=== PATIENT | male | born 1975 | race Caucasian/White ===

== ENCOUNTER 2023-02-09 21:45 | Emergency (ER) | payer SELFPAY ==
[~2023-02-09] VITALS: Ht 172.7 cm; Wt 70.3 kg
[~2023-02-09 21:45] MED LIST: QUET100T PO
--- NOTE | 2023-02-09 21:45 | NUR ---
[facility], PT TO [facility] C
[2023-02-09 21:55] VITALS: BP 129/80
--- NOTE | 2023-02-09 22:12 | NUR ---
PT EVALUATED BY PARVEEN
== END 2023-02-09 22:27 ==
LOC: MED 21:45
DX: Z02.89 Encounter for other administrative examinations (principal)
CPT/HCPCS: 99283